=== PATIENT | male | born 1945 | race Caucasian/White ===

== ENCOUNTER → 2017-03-12 | Outpatient (CLI) | payer MEDICARE, OTHER ==
[~2017-03-12] MED LIST: ASPIRIN EC81 MG PO
[2017-03-12 14:36] LABS: HEMOGLOBIN 14.6 gm/dl (14.0-17.5); RED BLOOD COUNT 4.75 M/UL (4.20-5.50); WHITE BLOOD COUNT 7.9 K/UL (4.5-11.0)
[2017-03-12 14:58] LABS: BUN/CREATININE RATIO 17 (0-10)
== END ==
LOC: LAB 14:02
PROVIDERS: Internal Medicine
DX: M51.36 Other intervertebral disc degeneration, lumbar region (principal); M19.90 Unspecified osteoarthritis, unspecified site; M65.312 Trigger thumb, left thumb; M35.3 Polymyalgia rheumatica; Z96.653 Presence of artificial knee joint, bilateral; Z98.890 Other specified postprocedural states; M19.012 Primary osteoarthritis, left shoulder; Z86.39 Personal history of other endocrine, nutritional and metabolic disease; M54.5 Low back pain
CPT/HCPCS: 36415; 80053; 84550; 85025; 86140

== ENCOUNTER → 2017-04-01 | Outpatient (CLI) | payer MEDICARE, OTHER | LOC: RT 17:37 | DX: I10 Essential (primary) hypertension (principal) | CPT/HCPCS: 93005 ==

== ENCOUNTER → 2021-12-01 | Outpatient (CLI) | payer MEDICARE, OTHER | LOC: HEART 5 08:30 | DX: I25.10 Atherosclerotic heart disease of native coronary artery without angina pectoris (principal); I10 Essential (primary) hypertension; R00.2 Palpitations | CPT/HCPCS: 78452; 93306; A9502; J2785 ==

== ENCOUNTER 2022-07-19 12:16 | Emergency (ER) | payer MEDICARE, OTHER ==
[~2022-07-19] VITALS: Ht 180.3 cm; Wt 99.8 kg
[2022-07-19 13:14] LABS: HEMOGLOBIN 14.5 gm/dl (14.0-17.5); RED BLOOD COUNT 4.61 M/UL (4.20-5.50); WHITE BLOOD COUNT 6.5 K/UL (4.5-11.0)
[2022-07-19 13:42] LABS: BUN/CREATININE RATIO 12 (0-10)
[2022-07-19] MEDS ORDERED: DECADRON4 MG PO (14:07)
[2022-07-19] MEDS ORDERED: ZITHROMAX250 MG PO (14:07)
== END 2022-07-19 15:42 | disposition home or self-care (01) ==
LOC: ER1 12:16
PROVIDERS: Family Medicine
DX: U07.1 COVID-19 (principal); J44.9 Chronic obstructive pulmonary disease, unspecified; E11.9 Type 2 diabetes mellitus without complications; Z88.0 Allergy status to penicillin; Z79.899 Other long term (current) drug therapy
CPT/HCPCS: 71045; 80053; 82550; 82553; 83615; 84484; 85025; 85379; 85652; 86140; 93005; 99284